=== PATIENT | male | born 1975 | race Caucasian/White ===

== ENCOUNTER 2017-02-05 16:07 | Emergency (ER) | payer SELFPAY ==
[~2017-02-05] VITALS: Ht 167.6 cm; Wt 70.0 kg
[2017-02-05 16:09] VITALS: BP 121/73
== END 2017-02-05 17:43 | disposition left against medical advice (07) ==
LOC: ER 16:08
DX: F10.120 Alcohol abuse with intoxication, uncomplicated (principal); R51 Headache